=== PATIENT | female | born 1935 | race Caucasian/White ===

== ENCOUNTER 2021-05-21 02:01 | Emergency (ER) | payer MEDICARE ==
[~2021-05-21] VITALS: Ht 167.6 cm; Wt 145.1 kg
[2021-05-21 03:18] LABS: BASO % 0.3 % (0.0-1.0); EOS # 0.2 10*3/uL (0.0-0.4); EOS % 2.3 % (1.0-4.0); HEMATOCRIT 33.1 % (37.0-47.0); LYMPH % 24.5 % (27.0-41.0); MEAN CELL VOLUME 90.9 fl (81.0-99.0); MEAN CORPUSCULAR HGB 27.7 pg (27.0-31.0); MEAN CORPUSCULAR HGB CONC 30.5 g/dl (33.0-37.0); MEAN PLATELET VOLUME 10.7 fl (9.6-12.3); MONO # 0.7 10*3/uL (0.1-1.0); NEUT # 5.1 10*3/uL (2.3-7.9); NEUT % 63.6 % (47.0-73.0); PLATELET COUNT AUTOMATED 204 10*3/uL (130-400); RED BLOOD COUNT 3.64 10*6/uL (4.10-5.10); RED CELL DISTRI WIDTH 15.1 % (0-14.5)
[2021-05-21 03:40] LABS: ALBUMIN 2.7 gm/dl (3.1-4.5); CREATININE 1.79 mg/dL (0.55-1.02); TOTAL PROTEIN 7.4 gm/dL (6.4-8.2)
[2021-05-21] MEDS ORDERED: DOXYCYCLINE HY100 M3 PO (05:59)
== END 2021-05-21 06:01 ==
LOC: ED 02:01
PROVIDERS: Emergency Medicine
DX: K11.21 Acute sialoadenitis (principal); Z88.1 Allergy status to other antibiotic agents; Z91.013 Allergy to seafood

== ENCOUNTER 2021-06-11 12:48 | Emergency (ER) | payer MEDICARE ==
[~2021-06-11] VITALS: Ht 162.5 cm; Wt 139.7 kg
[~2021-06-11 12:48] MED LIST: DOXYCYCLINE HY100 M3 PO
[2021-06-11] MEDS ORDERED: VIBRAMYCIN100 MG PO (14:09)
== END 2021-06-11 14:20 | disposition home or self-care (01) ==
LOC: ED 12:48
DX: R22.0 Localized swelling, mass and lump, head (principal); Z88.1 Allergy status to other antibiotic agents; Z91.013 Allergy to seafood

== ENCOUNTER 2021-12-13 20:34 | Emergency (ER) | payer MEDICARE ==
[~2021-12-13] VITALS: Ht 162.5 cm; Wt 127.0 kg
[~2021-12-13 20:34] MED LIST changes: +VIBRAMYCIN100 MG PO
[2021-12-13 21:12] LABS: BASO % 0.3 % (0.0-1.0); EOS # 0.4 10*3/uL (0.0-0.4); EOS % 3.6 % (1.0-4.0); HEMATOCRIT 37.3 % (37.0-47.0); LYMPH # 3.1 10*3/uL (1.3-4.4); LYMPH % 31.6 % (27.0-41.0); MEAN CELL VOLUME 86.7 fl (81.0-99.0); MEAN CORPUSCULAR HGB 28.1 pg (27.0-31.0); MEAN CORPUSCULAR HGB CONC 32.4 g/dl (33.0-37.0); MEAN PLATELET VOLUME 11.3 fl (9.6-12.3); MONO # 0.6 10*3/uL (0.1-1.0); MONO % 5.9 % (3.0-9.0); NEUT # 5.7 10*3/uL (2.3-7.9); NEUT % 58.1 % (47.0-73.0); NUCLEATED RED BLOOD CELL 0.1 10*3/uL (0.0-0.0); NUCLEATED RED BLOOD CELL 0.6 % (0.0-0.0); PLATELET COUNT AUTOMATED 213 10*3/uL (130-400); RED CELL DISTRI WIDTH 16.7 % (0-14.5); WHITE BLOOD COUNT 9.9 10*3/uL (4.8-10.8)
[2021-12-13 21:34] LABS: CREATININE 4.67 mg/dL (0.55-1.02); TOTAL PROTEIN 7.6 gm/dL (6.4-8.2)
[2021-12-13 21:39] LABS: POTASSIUM 7.3 mmol/L (3.5-5.1)
[2021-12-13 21:42] LABS: THYROID STIM HORMONE (HS) 7.31 uIU/ml (0.358-4.75)
[2021-12-14 01:24] LABS: CREATININE 4.66 mg/dL (0.55-1.02)
[2021-12-14 01:29] LABS: POTASSIUM 6.7 mmol/L (3.5-5.1)
[2021-12-14 02:23] LABS: BILIRUBIN Negative (Negative); BLOOD Negative (Negative); CLARITY Turbid (Clear); COLOR Dark Yellow (Yellow); GLUCOSE Negative (Negative); KETONE Trace (Negative); LEUKO ESTERASE Trace (Negative); NITRITE Negative (Negative)
[2021-12-14 02:55] LABS: BACTERIA TRACE; EPITHELIAL CELLS 41-50
== END 2021-12-14 05:44 | disposition short-term general hospital (02) ==
LOC: ED 20:34
PROVIDERS: Emergency Medicine
DX: R00.1 Bradycardia, unspecified (principal); N17.9 Acute kidney failure, unspecified; I95.9 Hypotension, unspecified; E87.5 Hyperkalemia; Z88.1 Allergy status to other antibiotic agents; Z91.013 Allergy to seafood

== ENCOUNTER 2023-03-05 14:21 | Emergency (ER) | payer MEDICARE, MEDICAID ==
[~2023-03-05] VITALS: Wt 120.2 kg
== END 2023-03-05 17:30 | disposition home or self-care (01) ==
LOC: ED 14:21
DX: M24.411 Recurrent dislocation, right shoulder (principal); E11.22 Type 2 diabetes mellitus with diabetic chronic kidney disease; I13.0 Hypertensive heart and chronic kidney disease with heart failure and stage 1 through stage 4 chronic kidney disease, or unspecified chronic kidney disease; N18.9 Chronic kidney disease, unspecified; J44.9 Chronic obstructive pulmonary disease, unspecified; Z88.1 Allergy status to other antibiotic agents; Z91.013 Allergy to seafood; Z88.8 Allergy status to other drugs, medicaments and biological substances; W17.89XA Other fall from one level to another, initial encounter; Y93.89 Activity, other specified; Y92.89 Other specified places as the place of occurrence of the external cause; Y99.8 Other external cause status